=== PATIENT | male | born 1965 | race African-American/Black ===

== ENCOUNTER 2023-05-11 08:50 | Emergency (ER) | payer BC, SELFPAY ==
[2023-05-11] MEDS ORDERED: Acetaminophen 500 MG TAB ONE (09:22)
[2023-05-11] MEDS ORDERED: Ketorolac Tromethamine 30 MG (1 mL) VIAL ONE ×2 (09:22→09:52)
== END 2023-05-11 10:42 | disposition home or self-care (01) ==
LOC: EDBD 08:50 → MADERS 08:50
DX: S39.012A Strain of muscle, fascia and tendon of lower back, initial encounter (principal); M17.0 Bilateral primary osteoarthritis of knee; M77.8 Other enthesopathies, not elsewhere classified; N20.0 Calculus of kidney; M51.36 Other intervertebral disc degeneration, lumbar region; F17.290 Nicotine dependence, other tobacco product, uncomplicated; V89.2XXA Person injured in unspecified motor-vehicle accident, traffic, initial encounter
CPT/HCPCS: 72131; 96374; J1885